=== PATIENT | female | born 1980 | race Asian ===

== ENCOUNTER 2017-02-11 00:30 | Inpatient (IN) | payer SELFPAY ==
[~2017-02-11] VITALS: Ht 173 cm; Wt 77.1 kg
[2017-02-11] MEDS ORDERED: NALBUPHINE HYDROCHLORIDE 10 MG/ML VIAL IVP PRN (01:15)
[2017-02-11] MEDS ORDERED: PROMETHAZINE 25 MG/ML VIAL IVP PRN (01:15)
[2017-02-11] MEDS ORDERED: CITRIC ACID/SODIUM CITRATE 30 ML UDC PO ONE (01:25)
[2017-02-11 02:21] LABS: BASOPHILS % (AUTO) 0.3 % (0.0-2.0); EOSINOPHILS # (AUTO) 0.1 K/uL (0-0.4); EOSINOPHILS % (AUTO) 1.7 % (0.0-4.0); HEMATOCRIT 36.8 % (36-48); HEMOGLOBIN 12.4 g/dL (12.0-16.0); LYMPHOCYTES # (AUTO) 1.2 K/uL (2.5-16.5); LYMPHOCYTES % (AUTO) 15.6 % (20.5-51.1); MEAN CORPUSCULAR HEMOGLOBIN 30 pg (27-31); MEAN CORPUSCULAR HGB CONC 34 g/dL (33-37); MEAN CORPUSCULAR VOLUME 88 fL (80-94); MONOCYTES # (AUTO) 0.5 K/uL (0.8-1.0); MONOCYTES % (AUTO) 6.6 % (1.7-9.3); NEUTROPHILS # (AUTO) 6.2 K/uL (1.8-7.7); NEUTROPHILS % (AUTO) 75.8 % (42.2-75.2); PLATELET COUNT (AUTO) 222 K/uL (140-450); RED BLOOD CELL COUNT(AUTO) 4.18 MIL/uL (4.20-5.40); RED CELL DISTRIBUTION WIDTH 13.7 % (11.6-13.7)
[2017-02-11] MEDS: LACTATED RINGERS 1,000 ML IV SCH ×2 (02:25→03:21)
[2017-02-11 02:34] LABS: APPEARANCE,URINE CLEAR (CLEAR); BILIRUBIN,URINE NEGATIVE (NEGATIVE); BLOOD, URINE NEGATIVE (NEGATIVE); COLOR,URINE YELLOW (YELLOW); LEUKOCYTE ESTERASE ,URINE NEGATIVE (NEGATIVE); NITRITE, URINE NEGATIVE (NEGATIVE); PROTEIN,URINE NEGATIVE (NEGATIVE); UGLUCOSE NEGATIVE (NEGATIVE); UROBILINOGEN,URINE 0.2 EU/dL (0.2 - 1)
[2017-02-11 02:49] LABS: HIV RAPID SCREEN NON-REACTIVE (NON REACTIV)
[2017-02-11 02:56] LABS: BACTERIA,URINE 1+ /HPF (None Seen); RBC,URINE 0-5 (RARE) /HPF (0-5); SQUAMOUS EPITHELIAL CELL,UR 4-10 (MOD) /LPF (0-3 (FEW)); WBC,URINE 0-5 (RARE) /HPF (0-5)
[2017-02-11] MEDS ORDERED: FERR325E14 PO (04:12)
[2017-02-11 04:15] VITALS: BP 105/62
[2017-02-11] MEDS ORDERED: ceFAZolin 1,000 MG VIAL ONE (06:18)
[2017-02-11] MEDS ORDERED: CITRIC ACID/SODIUM CITRATE 30 ML UDC ONE (06:19)
[2017-02-11] MEDS ORDERED: oxyCODONE/APAP 5/325 MG 1 TAB TAB PO PRN (06:25)
[2017-02-11] MEDS ORDERED: METHYLERGONOVINE 0.2 MG/ML AMP IM PRN (06:25)
[2017-02-11] MEDS ORDERED: TRIMETHOBENZAMIDE 200 MG/2 ML SYR IM PRN (06:25)
[2017-02-11] MEDS ORDERED: MEASLES, MUMPS, AND RUBELLA 1 VIAL SQVAC PRN (06:25)
[2017-02-11] MEDS ORDERED: TEMAZEPAM 15 MG CAP PO PRN (06:25)
[2017-02-11] MEDS ORDERED: OXYTOCIN 10 UNITS/ML VIAL ONE (06:56)
[2017-02-11] MEDS ORDERED: TRIAMCINOLONE 40 MG/ML 5ML VIAL ONE (06:56)
[2017-02-11] MEDS ORDERED: MIDAZOLAM 2 MG/2 ML VIAL ONE (07:08)
[2017-02-11] MEDS ORDERED: fentaNYL 0.05 MG/ML VIAL ONE (07:08)
[2017-02-11] MEDS ORDERED: KETAMINE 500 MG/5 ML VIAL ONE (07:08)
[2017-02-11] MEDS ORDERED: MORPHINE PRES FREE 10 MG/10 ML AMP IV ONE (07:09)
[2017-02-11] MEDS ORDERED: BUPIVACAINE-MPF 0.75% 10 ML VIAL INJ ONE (07:15)
[2017-02-11] MEDS ORDERED: KETOROLAC 30 MG/ML VIAL IVP PRN (08:00)
[2017-02-11] MEDS ORDERED: diphenhydrAMINE 50 MG/ML VIAL IVP PRN (08:00)
[2017-02-11] MEDS ORDERED: ONDANSETRON 4 MG/2 ML VIAL IVP PRN (08:00)
[2017-02-11] MEDS ORDERED: OXYTOCIN 20 UNITS/LR PREMIX 1,000 ML IV ONE (08:15)
--- NOTE | 2017-02-11 09:54 | NUR ---
PATIENT HAS BEEN SCREENED AND CATEGORIZED LOW NUTRITION RISK. PATIENT WILL BE SEEN WITHIN 7 DAYS OF ADMISSION. 02/17/[address]
[2017-02-11] MEDS: OXYTOCIN 20 UNITS/LR PREMIX 1,000 ML IV SCH (17:22)
[2017-02-11] MEDS: DOCUSATE SOD/SENNA 50/8.6 MG 1 TAB PO SCH (21:00)
[2017-02-12] MEDS: OXYTOCIN 20 UNITS/LR PREMIX 1,000 ML IV SCH (01:31)
[2017-02-12 06:48] LABS: BASOPHILS % (AUTO) 0.2 % (0.0-2.0); EOSINOPHILS # (AUTO) 0.1 K/uL (0-0.4); EOSINOPHILS % (AUTO) 1.7 % (0.0-4.0); HEMATOCRIT 33.5 % (36-48); HEMOGLOBIN 11.1 g/dL (12.0-16.0); LYMPHOCYTES # (AUTO) 0.9 K/uL (2.5-16.5); LYMPHOCYTES % (AUTO) 11.8 % (20.5-51.1); MEAN CORPUSCULAR HEMOGLOBIN 29 pg (27-31); MEAN CORPUSCULAR HGB CONC 33 g/dL (33-37); MEAN CORPUSCULAR VOLUME 88 fL (80-94); MONOCYTES # (AUTO) 0.4 K/uL (0.8-1.0); MONOCYTES % (AUTO) 5.8 % (1.7-9.3); NEUTROPHILS # (AUTO) 6.3 K/uL (1.8-7.7); NEUTROPHILS % (AUTO) 80.5 % (42.2-75.2); PLATELET COUNT (AUTO) 204 K/uL (140-450); RED BLOOD CELL COUNT(AUTO) 3.82 MIL/uL (4.20-5.40); RED CELL DISTRIBUTION WIDTH 13.9 % (11.6-13.7); WHITE BLOOD COUNT (AUTO) 7.7 K/uL (4.8-10.8)
[2017-02-12] MEDS: HYDROcodone/APAP 5/325 MG 1 TAB TAB PO PRN (08:53)
[2017-02-12] MEDS ORDERED: AMMONIA AROMATIC 1 INHL INH ONE (09:43)
[2017-02-12 13:32] LABS: RAPID PLASMA REAGIN NON-REACTIVE (Non Reactiv)
[2017-02-12] MEDS: DOCUSATE SOD/SENNA 50/8.6 MG 1 TAB PO SCH (22:57)
[2017-02-13] MEDS: HYDROcodone/APAP 5/325 MG 1 TAB TAB PO PRN ×2 (00:14→14:03)
[2017-02-13] MEDS ORDERED: SODIUM PHOSPHATE 118 ML ENEM RC PRN (05:15)
[2017-02-13] MEDS ORDERED: SHARK OIL/PHENYLEPHRINE 60 GM TUBE TP PRN (09:15)
[2017-02-13] MEDS: IBUPROFEN 800 MG TAB PO PRN (09:46)
[2017-02-13] MEDS: SIMETHICONE 80 MG TAB.CHEW PO PRN ×3 (09:56→19:11)
[2017-02-13] MEDS: DOCUSATE SOD/SENNA 50/8.6 MG 1 TAB PO SCH (20:25)
[2017-02-14] MEDS: HYDROcodone/APAP 5/325 MG 1 TAB TAB PO PRN (00:24)
[2017-02-14] MEDS ORDERED: HYDROcodone/APAP 5/325 MG 1 TAB TAB ONE (00:25)
[2017-02-14] MEDS: IBUPROFEN 800 MG TAB PO PRN (14:08)
== END 2017-02-14 17:20 | disposition home or self-care (01) | DRG 766 ==
LOC: MLD 00:30 → MFCC 07:29
PROVIDERS: ADMIT Obstetrics & Gynecology; ATTEND Obstetrics & Gynecology
PROC: 10D00Z1 Extraction of Products of Conception, Low, Open Approach (ICD-10-PCS; principal; 2017-02-11 07:00)
PROC: 3E0234Z Introduction of Serum, Toxoid and Vaccine into Muscle, Percutaneous Approach (ICD-10-PCS; 2017-02-12)
DX: O34.211 Maternal care for low transverse scar from previous cesarean delivery (principal); O77.0 Labor and delivery complicated by meconium in amniotic fluid; Z3A.39 39 weeks gestation of pregnancy; Z37.0 Single live birth; O09.523 Supervision of elderly multigravida, third trimester; Z23 Encounter for immunization
CPT/HCPCS: 36415; 51702; 81001; 85025; 86592; 86886; 86900; 86901; 87086; 90715; J0690; J2250; J2270; J2590; J3010; J3301; J3490; J7060; J7120